=== PATIENT | female | born 1935 | race Caucasian/White ===

== ENCOUNTER 2017-02-25 12:47 | Emergency (ER) | payer MEDICARE ==
--- NOTE | ~2017-02-25 | US85 ---
[facility] A Service of [facility] & [facility] RADIOLOGY TEXT RESULTS PATIENT: MEL SEPULVEDA LOCATION: [place] : 35 UNIT #: [id number] AGE: [address]: Helder Ballesteros MD SEX: F ORDER DR: [id number] [facility] [address] [place], [place] [address] [id number] E MR#: [id number] Acc #: [id number] NAME: MEL SEPULVEDA : 1935 SEX: F STUDY DATE/TIME: 02/25/2017 14:26 UNIT: [facility] ROOM: STUDY DESCRIPTION: LE Veins Unilat or Ltd Stdy Attending Physician: Helder Ballesteros M.D. Ordering Physician: Helder Ballesteros M.D. Primary Care Physician: Rey Quinteros M.D. MEDICAL IMAGING REPORT This report is preliminary unless electronic signature is present EXAM Left lower extremity venous duplex, 02/25/2017 HISTORY Left lower extremity pain for 1 day. Pain with weightbearing. Evaluate for deep vein thrombosis. TECHNIQUE Venous ultrasound examination of the left lower extremity was performed using grayscale, spectral Doppler and color flow Doppler imaging. FINDINGS The examination is negative. There is no evidence of left lower extremity deep venous thrombus from the groin to the lower calf. Visualized greater saphenous vein is also patent. IMPRESSION Negative examination. No evidence of left lower extremity deep venous thrombosis. Dictated by... Cain Myers M.D. THIS IS AN ELECTRONICALLY VERIFIED REPORT Cain Myers M.D. at 02/26/2017 6:29 AM Jovanna TD: 02/25/2017 16:29 JOB #: [id number] MEDICAL IMAGING REPORT Page 1 of 1 COPY
[~2017-02-25 12:47] MED LIST: ADVAIR 250-501 EACH IH; ALB/IPRATROPIUM/1 E1 INH; ALBUTEROL MININEB NEB; ALBUTEROL17 GM; ALBUTEROL17 GM INH; ALBUTEROL17 GM NEB; ALBUTEROL17 GM PO; ALDACTONE PO; ALDACTONE25 MG PO; ALLEGRA180 MG PO; ALLERCLEAR10 MG PO; ALLERGY RELIEF10 M1 PO; ALPRAZOLAM PO; AMLODIPINE BESY10 MG PO; AMOXICILLIN PO; ANTIVERT12.5 MG PO; ARTHRITIS PAIN650 M3 PO; ASPIRIN ENTERI325 M1 PO; ASPIRIN325 M1 PO; ASPIRIN81 M1; ASPIRIN81 M2 PO; ASPIRIN81 MG PO; ASPIRINEC PO; ATENOLOL; ATENOLOL PO; AUGMENTIN PO; AVELOX400 MG PO; BACTRIM DS TABL1 TA1 PO; BENZONATATE PO; BUMETANIDE0.5 MG PO; BUMEX PO; BUMEX1 MG PO; CHLORASEPTIC177 M1 MT; CIPRO250 MG; COMBIVENT INH14.7 GM; CORDARONE200 M1 PO; CORTISPORIN-TC10 M1 AS; COUMADIN1 MG PO; DARVOCET-N 1001 TAB PO; DUONEB 2.5-0.5 M3 ML IH; ECOTRIN325 MG PO; ECOTRIN81 M1 PO; FELDENE20 MG PO; FERRO-TIME325 MG PO; FLEXERIL PO; FLONASE 0.05% N16 G1; FLONASE 0.05% N16 GM; FLONASE ALLERG9.9 ML; FLOVENT DI50 MCG/DIS INH; FOLIC ACID1 MG PO; FUROSEMIDE40 MG PO; GAVILAX17 GM PO; HCTZ; HCTZ PO; HYDROCHLOROTHIA25 MG PO; HYDROCODON-ACE1 EAC7 PO; HYDROCODONE-APA1 T57 PO; IBUPROFEN800 MG PO; IPRAT-ALBUT 0.5-3 ML INH; K-DUR20 ME1 PO; K-TAB ER20 MEQ PO; KCL PO; LASIX PO; LASIX20 MG PO; LAXATIVE25 M1 PO; LEVAQUIN PO; LEVAQUIN250 MG PO; LEVAQUIN750 MG AD; LEVAQUIN750 MG PO; LEVOTHYROXINE25 MC1 PO; LEVOTHYROXINE25 MCG PO; MEDROL DOSEPAK4 MG PO; MEDROL PO; MEDROL4 MG/DOSE- PO; METOPROLOL TAR25 MG PO; MIRALAX17 GM PO; MOBIC PO; MONTELUKAST SOD10 MG PO; MORGIDOX100 MG PO; NABUMETONE PO; NABUMETONE500 MG PO; NORCO 5/325 TAB1 TAB PO; NORVASC; NORVASC PO; NORVASC10 MG PO; NORVASC2.5 MG PO; OMEPRAZOLE40 M1 PO; OMEPRAZOLE40 MG PO; OMNICEF300 MG PO; PAIN RELIEF325 M1 PO; PHENERGAN12.5 MG PO; PHENERGAN25 M1 PO; PHENERGAN25 MG PO; POTASSIUM20 MEQ/15 PO; PRAVACHOL20 MG PO; PREDNISONE PO; PREDNISONE10 MG PO; PRILOSEC40 MG PO; PROAIR HFA8.5 GM IH; PROTONIX PO; PULMICORT0.5 MG/2 M INH; QVAR7.3 G1 IH; REGLAN5 MG PO; RELAFEN; RELAFEN PO; REMERON15 MG PO; SIMVASTATIN40 MG PO; SINGULAIR PO; SPIRIVA18 MCG INH; SPIRONOLACTONE50 MG PO; SYMBICORT 16010.2 GM IH; SYMBICORT INH; SYNTHROID0.05 MG PO; TENORMIN25 MG PO; THEO-24200 MG PO; THEOCHRON200 MG PO; TRAVEL MOTION S25 MG PO; ZANTAC PO; ZANTAC150 M1 PO; ZANTAC150 MG PO; ZOCOR; ZOCOR PO; ZOFRAN PO; [UNRECOGNIZED DRUG - OTHER] PO; [UNRECOGNIZED DRUG - OTHER] PO; [UNRECOGNIZED DRUG - REMARK] PO
== END 2017-02-25 15:30 | disposition home or self-care (01) ==
LOC: CED 12:47
DX: M79.662 Pain in left lower leg (principal); J44.9 Chronic obstructive pulmonary disease, unspecified; I11.0 Hypertensive heart disease with heart failure; I50.9 Heart failure, unspecified; H54.0 Blindness, both eyes; E03.9 Hypothyroidism, unspecified; Z98.890 Other specified postprocedural states; Z90.710 Acquired absence of both cervix and uterus; Z96.641 Presence of right artificial hip joint; Z79.899 Other long term (current) drug therapy; Z79.82 Long term (current) use of aspirin; Z88.1 Allergy status to other antibiotic agents
CPT/HCPCS: 93971; 99283

== ENCOUNTER 2017-03-12 11:51 | Emergency (ER) | payer MEDICARE ==
--- NOTE | ~2017-03-12 | CR172 ---
[facility] A Service of [facility] & [facility] RADIOLOGY TEXT RESULTS PATIENT: MEL SEPULVEDA LOCATION: [facility] : 35 UNIT #: [id number] AGE: [address]: Oscar Osorio MD SEX: F ORDER DR: [id number] [facility] [address] [place], [place] [address] [id number] E MR#: [id number] Acc #: [id number] NAME: MEL SEPULVEDA : 1935 SEX: F STUDY DATE/TIME: 03/12/2017 13:38 UNIT: [facility] ROOM: STUDY DESCRIPTION: CR Knee 3 Views Lt Attending Physician: Oscar Osorio M.D. Ordering Physician: Oscar Osorio M.D. Primary Care Physician: Rey Quinteros M.D. MEDICAL IMAGING REPORT This report is preliminary unless electronic signature is present EXAM Knee, left, 3 views. HISTORY Pain in the left knee for 2 weeks. No known injury. COMMENT Three films of the left knee are reviewed. The bones are demineralized. There are no comparisons. Soft tissue swelling is seen at the distal anterior thigh soft tissues approximately in the distal quadriceps region. This could be due to some effusion, myositis or possibly some quadriceps tendon disease. Please correlate further clinically. If there is concern for infection, I would suggest fluid sampling. Soft tissue pathology otherwise best evaluated with an MRI if the patient is a candidate. There is mild osteoarthritis with narrowing of the lateral greater than medial tibiofemoral compartments and some mild osteophyte formation. Also some narrowing of the patellofemoral joint. No acute fracture is suspected. There is no bone destruction. IMPRESSION 1. There is soft tissue swelling seen focally, distal anterior thigh. This is approximately at the distal aspect of the quadriceps muscles and quadriceps tendon region. It could be due to pathology of the distal quadriceps/quadriceps tendon such as a partial tear. Alternate consideration would be that this is actually a somewhat complex joint effusion. If there is clinical concern for infection suggest fluid sampling. The appearance is not typical of a joint effusion. Soft tissue pathology is best assessed further with an MRI of the left knee if the patient is a candidate. 2. There is mild osteoarthritis but there is no acute fracture or dislocation or radiopaque foreign body. 3. The bones are demineralized in general. [facility] A Service of [facility] RADIOLOGY TEXT RESULTS PATIENT: MEL SEPULVEDA LOCATION: [facility] : 35 UNIT #: [id number] AGE: [address]: Oscar Osorio MD SEX: F ORDER DR: Dictated by... Leila Luke M.D. THIS IS AN ELECTRONICALLY VERIFIED REPORT Leila Luke M.D. at 03/14/2017 8:41 AM TAVON/leif TD: 03/13/2017 09:12 JOB #: [id number] MEDICAL IMAGING REPORT Page 1 of 1 COPY
== END 2017-03-12 15:45 | disposition home or self-care (01) ==
LOC: CED 11:51 → CFTX 13:51 → CED 13:51
DX: M25.562 Pain in left knee (principal); M19.90 Unspecified osteoarthritis, unspecified site; J44.9 Chronic obstructive pulmonary disease, unspecified; Z88.1 Allergy status to other antibiotic agents
CPT/HCPCS: 29505; 73562; 96372; 99283; J1885

== ENCOUNTER 2017-04-16 13:39 | Emergency (ER) | payer MEDICARE ==
--- NOTE | ~2017-04-16 | CR72 ---
[facility] A Service of [facility] & [facility] RADIOLOGY TEXT RESULTS PATIENT: MEL SEPULVEDA LOCATION: [facility] : 35 UNIT #: [id number] AGE: [address]: Elliott Orozco MD SEX: F ORDER DR: [id number] [facility] [address] [place], [place] [address] [id number] E MR#: [id number] Acc #: [id number] NAME: MEL SEPULVEDA : 1935 SEX: F STUDY DATE/TIME: 04/16/2017 14:13 UNIT: [facility] ROOM: STUDY DESCRIPTION: CR Chest Single View Portable Attending Physician: Elliott Orozco M.D. Ordering Physician: Elliott Orozco M.D. Primary Care Physician: Rey Quinteros M.D. MEDICAL IMAGING REPORT This report is preliminary unless electronic signature is present EXAM Single view chest INDICATION Cough. Left-sided abdominal pain, nausea and vomiting. FINDINGS Single portable AP view of the chest compared to 04/28/2016. Heart and mediastinal contours are unchanged. There is background emphysema and chronic interstitial opacities. No new pulmonary opacity. No pneumothorax or significant effusion. IMPRESSION Rotated exam. There is background COPD, however no new findings. Dictated by... Leif Fitch M.D. THIS IS AN ELECTRONICALLY VERIFIED REPORT Leif Fitch M.D. at 04/18/2017 10:27 AM MARIA INES/julito TD: 04/17/2017 06:02 JOB #: [id number] MEDICAL IMAGING REPORT Page 1 of 1 COPY
--- NOTE | ~2017-04-16 | EKG ---
PATIENT: MEL SEPULVEDA UNIT #: [id number] Ventricular Rate: 67 BPM Atrial Rate: 67 BPM P-R Interval: 210 ms QRS Duration: 88 ms Q-T Interval: 414 ms QTC Calculation(Bezet): 437 ms P [place]: 87 degrees Calculated R [place]: 83 degrees Calculated T [place]: 77 degrees Diagnosis Line: Sinus rhythm with 1st degree A-V block Diagnosis Line: Otherwise normal ECG Diagnosis Line: Diagnosis Line: Confirmed by SOFY SAMPSON MD ([id number]) on 04/16/2017 Diagnosis Line: 3:18:14 PM INTERPRETING MD: ADRIÁN BARBOSA
[2017-04-16 15:19] LABS: BASOPHIL% 0.4 % (0-2.5); EOSINOPHIL# 0.4 X10e3 (0-0.7); EOSINOPHIL% 3.9 % (0.0-7.0); HEMATOCRIT 30.1 % (35.0-45.0); HEMOGLOBIN 10.1 gm/dL (12.0-16.0); LYMPHOCYTE# 1.2 X10e3 (1.0-3.5); LYMPHOCYTE% 11.7 % (17.0-45.0); MEAN CELL VOLUME 89.8 FL (83-96); MEAN CORPUSCULAR HEMOGLOBIN 30.1 PG (28-34); MEAN CORPUSCULAR HGB CONC 33.5 g/dL (30-36); MEAN PLATELET VOLUME 7.7 FL (6.5-11.5); MONOCYTE# 0.8 X10e3 (0-1.0); MONOCYTE% 8.4 % (3.0-12.0); NEUTROPHIL# 7.6 X10e3 (1.5-7.1); NEUTROPHIL% 75.6 % (40-75); PLATELET COUNT 288 X10e3 (140-420); RED BLOOD COUNT 3.35 X10e (3.90-5.30); RED CELL DISTRIBUTION WIDTH 13.6 % (11.0-15.5)
[2017-04-16 15:20] LABS: DIFF IND NO
[2017-04-16 15:44] LABS: ALBUMIN SERUM 3.6 g/dL (3.5-5.0); BILIRUBIN, DIRECT 0.1 mg/dL (0.0-0.2); BILIRUBIN,INDIRECT 0.2 mg/dL (0.0-0.9); BILIRUBIN,TOTAL 0.3 mg/dL (0.2-2.0); BUN/CREATININE RATIO 12.5; CALCIUM SERUM 8.6 mg/dL (8.4-10.2); CREATININE SERUM 1.2 mg/dL (0.6-1.4); GLOM FILT RATE Estimated 42.4 mL/min (>60); POTASSIUM 4.6 mmol/L (3.5-5.1); PROTEIN TOTAL SERUM 7.2 g/dL (6.0-8.3)
[2017-04-16 17:14] LABS: URINE SOURCE CLEAN CATCH
[2017-04-16 17:19] LABS: URINE APPEARANCE CLEAR; URINE BILIRUBIN NEG (NEG); URINE BLOOD NEG (NEG); URINE COLOR YELLOW; URINE GLUCOSE NEG (NEG); URINE KETONE NEG (NEG); URINE LEUKOCYTE ESTERASE 2+ (NEG); URINE NITRATE NEG (NEG); URINE PROTEIN NEG (NEG); URINE SPECIFIC GRAVITY 1.013 (1.003-1.035); URINE UROBILINOGEN 0.2 MG/DL (NEG)
[2017-04-16 17:21] LABS: URINE BACTERIA AUWI NEG (NEGATIVE); URINE SQUAMOUS EPITHELIAL CELL OCC /[HPF]
[2017-04-16 17:31] LABS: CULTURE INDICATED? NO
[2017-04-16 17:58] LABS: POC - CKMB <1.0 ng/mL (0.0-7.9); POC - TROPONIN <0.05 ng/mL (<=0.05)
[2017-04-16 18:51] LABS: POC - CKMB <1.0 ng/mL (0.0-7.9); POC - TROPONIN <0.05 ng/mL (<=0.05)
== END 2017-04-16 19:39 | disposition home or self-care (01) ==
LOC: CED 13:39
PROVIDERS: Emergency Medicine
DX: J44.9 Chronic obstructive pulmonary disease, unspecified (principal); I50.9 Heart failure, unspecified; F17.210 Nicotine dependence, cigarettes, uncomplicated; Z88.1 Allergy status to other antibiotic agents
CPT/HCPCS: 36415; 71010; 80048; 80076; 81003; 82553; 83880; 84484; 85025; 93005; 94640; 99284; J2930